=== PATIENT | female | born 1995 | race Caucasian/White ===

== ENCOUNTER 2019-09-09 17:43 | Outpatient (CLI) | payer MEDICAID ==
[~2019-09-09] VITALS: Ht 165.1 cm; Wt 128.2 kg
--- NOTE | 2019-09-09 17:45 | NUR ---
Pt here with c/o of lower back pain "that wraps around the right side." Pt to [facility], explained. 33.2 weeks gestation, G3L2. Pt with hx of pre-e and delivered at 35 weeks. SVE: closed/thick/high. Assessment complete,VSS. FHR reactive, no contractions noted or palpated. 1824:Dr Hammond called and updated. Orders to DC home and follow up in the office.
[2019-09-09 17:58] VITALS: BP 137/88; PULSE 108; TEMP 98.2
--- NOTE | 2019-09-09 18:30 | NUR ---
DISCHARGE INSTRUCTIONS REVIEW WITH PT AND SO. VERBALIZED UNDERSTANDING. PREPARES TO DISCHARGE HOME
== END 2019-09-09 18:55 | disposition home or self-care (01) ==
LOC: LDRO 17:43 → LDR 17:45 → LDRO 18:55
DX: O62.9 Abnormality of forces of labor, unspecified (principal); O26.893 Other specified pregnancy related conditions, third trimester; Z3A.33 33 weeks gestation of pregnancy; M54.9 Dorsalgia, unspecified
CPT/HCPCS: OP

== ENCOUNTER 2019-10-26 12:16 | Outpatient (CLI) | payer MEDICAID ==
[~2019-10-26] VITALS: Ht 165.1 cm; Wt 128.6 kg
--- NOTE | 2019-10-26 12:15 | NUR ---
1215- Pt arrives on unit ambulatory with complaints of contractions every 8 mins. States she has been lenka since yesterday. Pt into bathroom, changes into gown. 1221- Pt into bed, EFM and TOCO on and tracing. O2 sat monitor on and tracing. VSS. Assessment completed. Pt denies VB, LOF. +FM per Pt and head many times by this RN on monitor.
[2019-10-26 12:26] VITALS: BP 118/56; PULSE 91; TEMP 97.7
[2019-10-26] MEDS ORDERED: PRENATAL TABLET PO (12:32)
[2019-10-26 13:15] VITALS: PULSE 92
[2019-10-26 13:43] VITALS: BP 118/59; PULSE 97
--- NOTE | 2019-10-26 14:17 | NUR ---
1327- EFM and TOCO off, Pt up to void. 1332- Pt back to bed, EFM and TOCO on and tracing. 1342- SVE by this RN unchanged. EFM and TOCO off. Discussed labor precautions and when to return to hospital. Pt denies questions.Pt up to change into street clothes. 1350- Paperwork provided and explained. Pt ambulates off unit in stable condition with spouse.
== END 2019-10-26 13:52 | disposition home or self-care (01) ==
LOC: LDRO 12:16
DX: O26.93 Pregnancy related conditions, unspecified, third trimester (principal); Z3A.41 41 weeks gestation of pregnancy

== ENCOUNTER 2019-11-01 04:21 | Inpatient (IN) | payer MEDICAID ==
[~2019-11-01] VITALS: Ht 165.1 cm; Wt 128.2 kg
[2019-11-01] VITALS (15 sets, daily range): BP systolic 116–141; BP diastolic 67–85; PULSE 68–108; TEMP 97.7–98.1
[~2019-11-01 04:21] MED LIST: PRENATAL TABLET PO
--- NOTE | 2019-11-01 04:30 | NUR ---
G3L2, 41 wks. Pt wheeled to LR 3 with spouse. EFM and TOCO explained and applied. Pt states her contractions have been 5 mins apart since 0115. Pt denies leaking of fluids or vaginal bleeding. Reports good movement. Pt was scheduled for 0700 induction this morning. Plan of care explained. SVE and assessment completed. 0447: called and updated on pts status. See yiscan notifcation.
--- NOTE | 2019-11-01 05:20 | NUR ---
at nurses station and reviews FHR strip.
[2019-11-01 05:47] LABS: BASO % 0.2 % (0.0-2.0); EOS # 0.1 (0.0-0.7); EOS % 0.7 % (0-4.0); GRAN # 13.8 (1.4-6.5); GRAN % 82.4 % (42.2-75.2); HEMATOCRIT 38.7 % (37.0-47.0); HEMOGLOBIN 12.6 g/dl (12.5-16.0); LYMPH # 1.7 (1.2-3.4); LYMPH % 9.9 % (20.0-51.0); MEAN CELL VOLUME 93 fl (80.0-100.0); MEAN CORPUSCULAR HEMOGLOBIN 30 pg (27.0-31.0); MEAN CORPUSCULAR HGB CONC 33 g/dl (33.0-37.0); MEAN PLATELET VOLUME 10.6 fl (7.4-10.4); PLATELET COUNT 406 K/mm3 (130-400); RED BLOOD COUNT 4.15 M/mm3 (4.10-5.30); REDCELL DISTRIBUTION WIDTH-CV 14.1 % (11.5-14.5)
--- NOTE | 2019-11-01 10:53 | NUR ---
0645 - Pt states she is feeling increased pressure with contractions. SVE 8-9/100/0. 0700 - Dr. Peña notified of pt on unit and current status. Requested physician to come to unit. 0710 - Dr. Peña to pt bedside. AROM at this time, clear fluid noted. SVE per physician 8/100/0. RN remains at bedside. 0721 - Pt states pressure is very intense with contractions. 0726 - SVE anterior lip/100/+1. RN heads to door to notifiy physician at desk, pt starts lenka and screams "he's coming, I have to push" RN returns to bedside to see top of baby's head delivering at 0729. Dr. Peña and Carol Almendarez RN enter room at this time, see baby deliver in bed at 0729. This RN dries and stimulates baby while Dr. Peña gowns and gloves. Ludivina Valle RN of nursery to the room at this time. Cord clamped and cut by Dr. Peña, placed skin to skin with mother. Bed broken down, cord gases collected by Dr. Peña. Placenta delivered spontaneously at 0734. Perineal repair performed by Dr. Peña. Pericare provided, ice pack, pad, and panties placed. Pt repositioned for comfort, denies needs at this time.
--- NOTE | 2019-11-01 12:00 | NUR ---
1200- Pt voids independently. This RN at bedside to provide clean gown and more underwear. Pt states she passed a few clots while voiding. Approximately 200mls of clots noted in hat. 1210- Fundal massage by this RN. Fundus feels firm and at the U. Minimal free-flow noted with massage. Pt states she feels like there is another clot. Pt repositioned hips and a large amount of free-flow bleeding noted with 3 golf ball sized clots noted. Pt denies pain. Pericare completed. Precautions given for when to call nurse. Pt verbalizes understanding. Call light within reach. 1220- N.CARISA Lopes updated on Pt status.
--- NOTE | 2019-11-01 12:36 | NUR ---
RN to bedside for vitals and evaluation of bleeding. Vitals taken, BP 140/88, P 93. Pt states "I feel like there's another clot coming." Pad checked, eagle size clot noted. Fundal massage provided, fundus firm, large amount of free flow noted as well as passage of second eagle size clot. Pt taken to bathroom, pericare provided, clean panties and pad placed.
--- NOTE | 2019-11-01 13:09 | NUR ---
Pt called out at 1245 and reported "another large gush of blood". Upon evaluation, several clots noted in pad and panties. Moshe Cesar, RN called to room to assist. Panties and pad removed from pt, pad 100% saturated. Fundal massage provided, orange size clot expressed with large amount of free flow. Continued massage produced grapefruit size clot. Following expression of this clot, free flow greatly reduced to small to moderate. IM methergine given in right thigh, pitocin started per protocol, both per physician orders. Pads and clots weighed, EBL 994ml.
[2019-11-02 00:30] VITALS: BP 135/64; PULSE 86; TEMP 98.1
[2019-11-02 06:55] VITALS: BP 111/63; PULSE 88; TEMP 98.9
[2019-11-02 11:00] VITALS: BP 146/73; PULSE 90; TEMP 98.3
[2019-11-02 16:30] VITALS: BP 130/62; PULSE 79; TEMP 98
[2019-11-02 21:00] VITALS: BP 129/75; PULSE 118; TEMP 98.8
[2019-11-03 09:47] VITALS: BP 110/94; PULSE 94; TEMP 98.9
[2019-11-03] MEDS ORDERED: IBU600 MG PO (11:35)
== END 2019-11-03 12:40 | disposition home or self-care (01) | DRG 807 ==
LOC: OB 04:21 → LDR 04:21 → OB 10:14
PROVIDERS: ADMIT Obstetrics & Gynecology
PROC: 10E0XZZ Delivery of Products of Conception, External Approach (ICD-10-PCS; principal; 2019-11-01)
PROC: 0KQM0ZZ Repair Perineum Muscle, Open Approach (ICD-10-PCS; 2019-11-01)
PROC: 10907ZC Drainage of Amniotic Fluid, Therapeutic from Products of Conception, Via Natural or Artificial Opening (ICD-10-PCS; 2019-11-01)
DX: O99.824 Streptococcus B carrier state complicating childbirth (principal); Z37.0 Single live birth; O99.214 Obesity complicating childbirth; E66.9 Obesity, unspecified; O70.1 Second degree perineal laceration during delivery; Z3A.41 41 weeks gestation of pregnancy
CPT/HCPCS: J2210; J2540; J2590; J7120

== ENCOUNTER 2021-12-18 18:34 | Outpatient (CLI) | payer MEDICAID ==
[~2021-12-18] VITALS: Ht 165.1 cm; Wt 133.6 kg
[~2021-12-18 18:34] MED LIST changes: +IBU600 MG PO
[2021-12-18 19:17] VITALS: BP 139/87; PULSE 90; TEMP 98.4
--- NOTE | 2021-12-18 19:30 | NUR ---
1845 - PT ARRIVED TO UNIT AMBULATORY AND IN STABLE CONDITION. PT STATES THAT SHE HAS HIGH BLOOD PRESSURE AND THAT IS WHY SHE CAME IN [facility]. PT STATES THAT SHE WENT TO [facility] IN THE DAY AND CHECKED HER BLOOD PRESSURE ON THEIR MACHINE. THE FIRST READING WAS 153/103 AND THE SECOND READING WAS 176/98. THE PATIENT AND HER SIGNIFICANT OTHER THEN WENT TO THE [facility] IN [place] FOR A FOLLOW UP READING. PT STATES THAT HER BLOOD PRESSURE WAS TAKEN MANUALLY THERE AND IT WAS 188/93. PT THEN PROCEEDED TO THE HOSPITAL FOR FURTHER EVALUATION. 185 - PT PLACED ON MONITOR 1854 - BLOOD PRESSURE READING OF 139/87 1857 - MD MILEY NOTIFIED (SEE PHYSICIAN NOTIFICATION) 0 - PT DISCHARGED HOME WITH ROUTINE DISCHARGE INSTRUCTIONS, LABOR PRECAUTIONS, AND SIGNS AND SYMPTOMS OF WORSENING PRE-ECLAMPSIA. PT VERBALIZED UNDERSTANDING AND ALL QUESTIONS ANSWERED AT THIS TIME. PT LEFT UNIT AMBULATORY AND IN STABLE CONDITION.
== END 2021-12-18 19:30 | disposition home or self-care (01) ==
LOC: LDRO 18:34 → LDR 18:45 → LDRO 19:30
DX: O16.3 Unspecified maternal hypertension, third trimester (principal); Z3A.35 35 weeks gestation of pregnancy
CPT/HCPCS: OP